=== PATIENT | female | born 1965 | race Caucasian/White ===

== ENCOUNTER 2016-12-09 15:07 | Emergency (ER) | payer OTHER ==
[~2016-12-09] VITALS: Ht 165.1 cm; Wt 135.6 kg
[2016-12-09] MEDS ORDERED: VALS320T2 PO (15:56)
[2016-12-09] MEDS ORDERED: HYDR50TA3 PO (15:56)
[2016-12-09] MEDS ORDERED: AMLO5TAB2 PO (15:56)
[2016-12-09] MEDS ORDERED: CARV-39 PO ×2 (15:56)
[2016-12-09] MEDS ORDERED: CEPH-376 PO (15:56)
[2016-12-09] MEDS ORDERED: SODIUM CHLORIDE FLUSH 10ML SYR IVF ONE (16:00)
[2016-12-09] MEDS ORDERED: SODIUM CHLORIDE 0.9% 1,000ML IVBOLUS ONE (16:00)
[2016-12-09 16:31] LABS: ASPARTATE AMINO TRANSFERASE 20 U/L (15-37); BLOOD UREA NITROGEN 17 mg/dL (7-18)
[2016-12-09 18:09] VITALS: BP 172/85
== END 2016-12-09 18:29 | disposition home or self-care (01) ==
LOC: ED 17:21
DX: L03.116 Cellulitis of left lower limb (principal); I10 Essential (primary) hypertension; Z87.891 Personal history of nicotine dependence
CPT/HCPCS: 36415; 73630; 80053; 83605; 84145; 85025; 87040; 93971; 96360; 96361; 99285; J7030

== ENCOUNTER → 2016-12-09 | Outpatient (CLI) | payer OTHER ==
[~2016-12-09] MED LIST: AMLO5TAB2 PO; CARV-39 PO; CEPH-376 PO; HYDR50TA3 PO; VALS320T2 PO
== END | disposition home or self-care (01) ==
LOC: WOUND 13:36
PROVIDERS: ATTEND Physician Assistant
DX: L03.116 Cellulitis of left lower limb (principal); I87.2 Venous insufficiency (chronic) (peripheral); I10 Essential (primary) hypertension; Z87.891 Personal history of nicotine dependence; Z72.89 Other problems related to lifestyle
CPT/HCPCS: 99214

== ENCOUNTER → 2016-12-28 | Outpatient (CLI) | payer OTHER | END | disposition home or self-care (01) | LOC: CFH 06:37 | PROVIDERS: ATTEND Physician Assistant | DX: I87.2 Venous insufficiency (chronic) (peripheral) (principal); R60.0 Localized edema; S91.302D Unspecified open wound, left foot, subsequent encounter; I10 Essential (primary) hypertension; Z87.891 Personal history of nicotine dependence; X58.XXXD Exposure to other specified factors, subsequent encounter | CPT/HCPCS: 93922; 93925; 93971 ==

== ENCOUNTER 2017-01-02 12:29 | Inpatient (IN) | payer OTHER ==
[~2017-01-02] VITALS: Ht 165.1 cm; Wt 134.5 kg
[~2017-01-02 12:29] MED LIST changes: -SULF1TAB3 PO; -TERB250T3 PO
[2017-01-02] MEDS ORDERED: SULF1TAB3 PO (12:58)
[2017-01-02] MEDS ORDERED: TERB250T3 PO (12:58)
[2017-01-02 13:54] LABS: BLOOD UREA NITROGEN 21 mg/dL (7-18)
[2017-01-02] MEDS ORDERED: PHARMACY MAY ADJ FOR RENAL FX MC PRN (15:30)
[2017-01-02 15:45] VITALS: BP 133/80
[2017-01-02] MEDS ORDERED: HYDROcodone/APAP 5/325 TABLET PO PRN (16:00)
[2017-01-02] MEDS ORDERED: BISACODYL 10 MG SUPP PR PRN (16:00)
[2017-01-02] MEDS ORDERED: ONDANSETRON ODT 4 MG PO PRN (16:00)
[2017-01-02] MEDS ORDERED: DIPHENHYDRAMINE 50 MG/ML, 1ML IVPush PRN (16:00)
[2017-01-02] MEDS ORDERED: DOCUSATE 100 MG CAPSULE PO PRN (16:00)
[2017-01-02] MEDS ORDERED: ONDANSETRON 2MG/ML, 2ML IVPush PRN (16:00)
[2017-01-02] MEDS ORDERED: LABETALOL 5MG/ML, 20ML IVPush PRN (16:00)
[2017-01-02] MEDS ORDERED: POLYETHYLENE GLYCOL 17 GM PACKET PO PRN (16:00)
[2017-01-02] MEDS: HEPARIN 5,000 UNITS/ML, 1ML SQ SCH (17:48)
[2017-01-02] MEDS: CEFTAROLINE 400 MG in SODIUM CHLORIDE 0.9% 100 ML IV SCH (17:48)
[2017-01-02 19:18] VITALS: BP 119/72
[2017-01-02] MEDS: SODIUM CHLORIDE FLUSH 3ML SYRINGE IVF SCH (22:48)
[2017-01-02] MEDS: CARVEDILOL 25 MG TABLET PO SCH (22:48)
[2017-01-03] MEDS: HEPARIN 5,000 UNITS/ML, 1ML SQ SCH ×4 (00:30→23:59)
[2017-01-03 03:10] VITALS: BP 111/69
[2017-01-03 05:49] LABS: BLOOD UREA NITROGEN 18 mg/dL (7-18)
[2017-01-03] MEDS: CEFTAROLINE 400 MG in SODIUM CHLORIDE 0.9% 100 ML IV SCH ×2 (06:31→18:06)
[2017-01-03 07:24] VITALS: BP 119/68
[2017-01-03] MEDS: AMLODIPINE 5 MG TABLET PO SCH ×2 (07:57→09:00)
[2017-01-03] MEDS: HYDROCHLOROTHIAZIDE 25 MG TABLET PO SCH (08:01)
[2017-01-03] MEDS: TERBINAFINE 250MG TABLET PO SCH (08:02)
[2017-01-03] MEDS: SODIUM CHLORIDE FLUSH 3ML SYRINGE IVF SCH ×2 (09:00→20:27)
[2017-01-03] MEDS: CARVEDILOL 25 MG TABLET PO SCH ×3 (09:00→20:29)
[2017-01-03] MEDS: VALSARTAN 320 MG TABLET PO SCH (09:00)
[2017-01-03] MEDS ORDERED: CARVEDILOL 25 MG TABLET PO SCH ×2 (09:00→21:00)
[2017-01-03 10:00] VITALS: BP 109/60
[2017-01-03 13:47] VITALS: BP 141/68
[2017-01-03 20:16] VITALS: BP 112/72
[2017-01-04 01:13] VITALS: BP 111/72
[2017-01-04] MEDS: CEFTAROLINE 400 MG in SODIUM CHLORIDE 0.9% 100 ML IV SCH ×2 (06:02→17:45)
[2017-01-04 07:41] VITALS: BP 121/71
[2017-01-04] MEDS: HEPARIN 5,000 UNITS/ML, 1ML SQ SCH ×2 (08:44→16:34)
[2017-01-04] MEDS: SODIUM CHLORIDE FLUSH 3ML SYRINGE IVF SCH ×2 (08:45→21:00)
[2017-01-04] MEDS: HYDROCHLOROTHIAZIDE 25 MG TABLET PO SCH (08:45)
[2017-01-04] MEDS: CARVEDILOL 25 MG TABLET PO SCH ×2 (08:45→21:45)
[2017-01-04] MEDS: AMLODIPINE 5 MG TABLET PO SCH (08:46)
[2017-01-04] MEDS: VALSARTAN 320 MG TABLET PO SCH (08:46)
[2017-01-04] MEDS: TERBINAFINE 250MG TABLET PO SCH (08:46)
[2017-01-04 12:53] VITALS: BP 153/72
[2017-01-04 19:39] VITALS: BP 138/84
[2017-01-05] MEDS: HEPARIN 5,000 UNITS/ML, 1ML SQ SCH ×4 (00:31→23:43)
[2017-01-05 02:37] VITALS: BP 103/65
[2017-01-05] MEDS: CEFTAROLINE 400 MG in SODIUM CHLORIDE 0.9% 100 ML IV SCH (05:55)
[2017-01-05 07:31] VITALS: BP 149/82
[2017-01-05] MEDS: SODIUM CHLORIDE FLUSH 3ML SYRINGE IVF SCH ×2 (09:00→21:00)
[2017-01-05] MEDS: TERBINAFINE 250MG TABLET PO SCH (09:00)
[2017-01-05] MEDS: AMLODIPINE 5 MG TABLET PO SCH (09:26)
[2017-01-05] MEDS: VALSARTAN 320 MG TABLET PO SCH (09:26)
[2017-01-05] MEDS: CARVEDILOL 25 MG TABLET PO SCH ×2 (09:27→20:32)
[2017-01-05] MEDS: HYDROCHLOROTHIAZIDE 25 MG TABLET PO SCH (09:27)
[2017-01-05 12:52] VITALS: BP 103/69
[2017-01-05] MEDS: CEFTAROLINE 600 MG in SODIUM CHLORIDE 0.9% 100 ML IV SCH ×2 (15:47→23:43)
[2017-01-05 20:23] VITALS: BP 118/71
[2017-01-06 02:59] VITALS: BP 126/82
[2017-01-06] MEDS: CEFTAROLINE 600 MG in SODIUM CHLORIDE 0.9% 100 ML IV SCH ×3 (08:06→23:16)
[2017-01-06 08:49] VITALS: BP 139/89
[2017-01-06] MEDS: TERBINAFINE 250MG TABLET PO SCH (09:00)
[2017-01-06] MEDS: SODIUM CHLORIDE FLUSH 3ML SYRINGE IVF SCH ×2 (09:00→20:20)
[2017-01-06] MEDS: HYDROCHLOROTHIAZIDE 25 MG TABLET PO SCH (09:56)
[2017-01-06] MEDS: CARVEDILOL 25 MG TABLET PO SCH ×2 (09:57→20:19)
[2017-01-06] MEDS: AMLODIPINE 5 MG TABLET PO SCH (09:57)
[2017-01-06] MEDS: VALSARTAN 320 MG TABLET PO SCH (09:57)
[2017-01-06] MEDS: HEPARIN 5,000 UNITS/ML, 1ML SQ SCH ×3 (09:58→23:18)
[2017-01-06 16:46] VITALS: BP 127/78
[2017-01-06 20:28] VITALS: BP 131/71
[2017-01-07 04:31] VITALS: BP 108/72
[2017-01-07] MEDS: CEFTAROLINE 600 MG in SODIUM CHLORIDE 0.9% 100 ML IV SCH ×2 (06:19→16:23)
[2017-01-07 07:00] VITALS: BP 131/79
[2017-01-07] MEDS: SODIUM CHLORIDE FLUSH 3ML SYRINGE IVF SCH ×2 (09:00→21:00)
[2017-01-07] MEDS: CARVEDILOL 25 MG TABLET PO SCH ×2 (09:46→21:04)
[2017-01-07] MEDS: AMLODIPINE 5 MG TABLET PO SCH (09:46)
[2017-01-07] MEDS: VALSARTAN 320 MG TABLET PO SCH (09:47)
[2017-01-07] MEDS: HYDROCHLOROTHIAZIDE 25 MG TABLET PO SCH (09:47)
[2017-01-07] MEDS: HEPARIN 5,000 UNITS/ML, 1ML SQ SCH ×3 (09:48→23:59)
[2017-01-07] MEDS: TERBINAFINE 250MG TABLET PO SCH (09:50)
[2017-01-07 12:30] VITALS: BP 121/76
[2017-01-07] MEDS: DIPHENHYDRAMINE 50 MG CAPSULE PO PRN (14:42)
[2017-01-07 20:00] VITALS: BP 151/85
[2017-01-07] MEDS: MEROPENEM 500 MG in SODIUM CHLORIDE 0.9% 100 ML IV SCH (20:30)
[2017-01-07] MEDS: LINEZOLID PMX 600MG/300ML 300 ML IV SCH (21:04)
[2017-01-08] MEDS: MEROPENEM 500 MG in SODIUM CHLORIDE 0.9% 100 ML IV SCH ×4 (01:41→22:45)
[2017-01-08 01:50] VITALS: BP 103/68
[2017-01-08 05:43] LABS: BLOOD UREA NITROGEN 10 mg/dL (7-18)
[2017-01-08] MEDS ORDERED: POTASSIUM CHLORIDE 20 MEQ TAB.ER.PRT PO ONE (06:42)
[2017-01-08] MEDS: HYDROCHLOROTHIAZIDE 25 MG TABLET PO SCH (08:44)
[2017-01-08] MEDS: AMLODIPINE 5 MG TABLET PO SCH (08:44)
[2017-01-08] MEDS: CARVEDILOL 25 MG TABLET PO SCH ×2 (08:44→20:26)
[2017-01-08] MEDS: VALSARTAN 320 MG TABLET PO SCH (08:44)
[2017-01-08] MEDS: HEPARIN 5,000 UNITS/ML, 1ML SQ SCH ×2 (08:45→16:21)
[2017-01-08] MEDS: TERBINAFINE 250MG TABLET PO SCH (08:45)
[2017-01-08 08:48] VITALS: BP 146/83
[2017-01-08] MEDS: DIPHENHYDRAMINE 50 MG CAPSULE PO PRN (08:50)
[2017-01-08] MEDS: SODIUM CHLORIDE FLUSH 3ML SYRINGE IVF SCH ×2 (09:00→20:29)
[2017-01-08] MEDS: LINEZOLID PMX 600MG/300ML 300 ML IV SCH ×2 (10:15→20:26)
[2017-01-08 15:44] VITALS: BP 130/75
[2017-01-08 20:00] VITALS: BP 144/86
[2017-01-09] MEDS: HEPARIN 5,000 UNITS/ML, 1ML SQ SCH ×3 (00:01→16:47)
[2017-01-09 00:57] VITALS: BP 109/62
[2017-01-09] MEDS: MEROPENEM 500 MG in SODIUM CHLORIDE 0.9% 100 ML IV SCH ×3 (04:38→16:47)
[2017-01-09 05:21] LABS: ASPARTATE AMINO TRANSFERASE 35 U/L (15-37); BLOOD UREA NITROGEN 10 mg/dL (7-18)
[2017-01-09 07:56] VITALS: BP 129/78
[2017-01-09] MEDS: CARVEDILOL 25 MG TABLET PO SCH ×2 (08:35→21:28)
[2017-01-09] MEDS: VALSARTAN 320 MG TABLET PO SCH (08:35)
[2017-01-09] MEDS: LINEZOLID PMX 600MG/300ML 300 ML IV SCH ×2 (08:35→21:28)
[2017-01-09] MEDS: HYDROCHLOROTHIAZIDE 25 MG TABLET PO SCH (08:36)
[2017-01-09] MEDS: AMLODIPINE 5 MG TABLET PO SCH (08:36)
[2017-01-09] MEDS: TERBINAFINE 250MG TABLET PO SCH (08:37)
[2017-01-09] MEDS: SODIUM CHLORIDE FLUSH 3ML SYRINGE IVF SCH ×2 (09:00→21:00)
[2017-01-09 13:30] VITALS: BP 132/73
[2017-01-09 18:58] VITALS: BP 142/82
[2017-01-10] MEDS: MEROPENEM 500 MG in SODIUM CHLORIDE 0.9% 100 ML IV SCH ×5 (00:01→23:53)
[2017-01-10 01:32] VITALS: BP 105/68
[2017-01-10 05:21] LABS: BLOOD UREA NITROGEN 9 mg/dL (7-18)
[2017-01-10 08:28] VITALS: BP 155/88
[2017-01-10] MEDS: LINEZOLID PMX 600MG/300ML 300 ML IV SCH ×2 (08:46→21:03)
[2017-01-10] MEDS: HEPARIN 5,000 UNITS/ML, 1ML SQ SCH ×4 (08:46→23:58)
[2017-01-10] MEDS: SODIUM CHLORIDE FLUSH 3ML SYRINGE IVF SCH ×2 (08:46→21:00)
[2017-01-10] MEDS: CARVEDILOL 25 MG TABLET PO SCH ×2 (08:47→21:03)
[2017-01-10] MEDS: AMLODIPINE 5 MG TABLET PO SCH (08:47)
[2017-01-10] MEDS: VALSARTAN 320 MG TABLET PO SCH (08:47)
[2017-01-10] MEDS: HYDROCHLOROTHIAZIDE 25 MG TABLET PO SCH (08:48)
[2017-01-10] MEDS: TERBINAFINE 250MG TABLET PO SCH (08:49)
[2017-01-10 14:28] VITALS: BP 103/67
[2017-01-10 18:54] VITALS: BP 143/84
[2017-01-10] MEDS: DIPHENHYDRAMINE 50 MG CAPSULE PO PRN (21:03)
[2017-01-11 02:04] VITALS: BP 114/73
[2017-01-11] MEDS: MEROPENEM 500 MG in SODIUM CHLORIDE 0.9% 100 ML IV SCH (05:46)
[2017-01-11 05:48] LABS: BLOOD UREA NITROGEN 10 mg/dL (7-18)
[2017-01-11 07:55] VITALS: BP 144/72
[2017-01-11] MEDS: HEPARIN 5,000 UNITS/ML, 1ML SQ SCH ×3 (07:59→23:59)
[2017-01-11] MEDS: CARVEDILOL 25 MG TABLET PO SCH ×2 (07:59→20:47)
[2017-01-11] MEDS: SODIUM CHLORIDE FLUSH 3ML SYRINGE IVF SCH ×2 (08:00→20:48)
[2017-01-11] MEDS: VALSARTAN 320 MG TABLET PO SCH (08:00)
[2017-01-11] MEDS: AMLODIPINE 5 MG TABLET PO SCH (08:01)
[2017-01-11] MEDS: HYDROCHLOROTHIAZIDE 25 MG TABLET PO SCH (08:01)
[2017-01-11] MEDS: TERBINAFINE 250MG TABLET PO SCH (08:02)
[2017-01-11] MEDS: LINEZOLID PMX 600MG/300ML 300 ML IV SCH (09:56)
[2017-01-11] MEDS ORDERED: TRIAMCINOLONE OINT 0.1%, 15GM TP SCH (11:30)
[2017-01-11] MEDS: TRIAMCINOLONE CRM 0.1%, 15GM TP SCH ×2 (12:30→20:48)
[2017-01-11] MEDS: DOXYCYCLINE 100MG TABLET PO SCH ×2 (12:30→20:47)
[2017-01-11 14:00] VITALS: BP 126/74
[2017-01-11 19:24] VITALS: BP 143/84
[2017-01-11] MEDS: DIPHENHYDRAMINE 50 MG CAPSULE PO PRN (20:48)
[2017-01-12 02:35] VITALS: BP 107/72
[2017-01-12 05:44] LABS: BLOOD UREA NITROGEN 10 mg/dL (7-18)
[2017-01-12 07:22] VITALS: BP 122/77
[2017-01-12] MEDS: SODIUM CHLORIDE FLUSH 3ML SYRINGE IVF SCH ×2 (09:00→20:41)
[2017-01-12] MEDS: TERBINAFINE 250MG TABLET PO SCH (09:00)
[2017-01-12] MEDS: VALSARTAN 320 MG TABLET PO SCH (09:23)
[2017-01-12] MEDS: DOXYCYCLINE 100MG TABLET PO SCH ×2 (09:23→20:41)
[2017-01-12] MEDS: AMLODIPINE 5 MG TABLET PO SCH (09:23)
[2017-01-12] MEDS: HYDROCHLOROTHIAZIDE 25 MG TABLET PO SCH (09:23)
[2017-01-12] MEDS: CARVEDILOL 25 MG TABLET PO SCH ×2 (09:24→20:41)
[2017-01-12] MEDS: HEPARIN 5,000 UNITS/ML, 1ML SQ SCH (09:24)
[2017-01-12] MEDS: TRIAMCINOLONE CRM 0.1%, 15GM TP SCH ×2 (09:24→20:41)
[2017-01-12] MEDS ORDERED: ENOXAPARIN 40 MG/0.4 ML SQ SCH (15:00)
[2017-01-12 15:17] VITALS: BP 128/77
[2017-01-12 19:41] VITALS: BP 135/84
[2017-01-13 02:06] VITALS: BP 115/75
[2017-01-13 07:21] VITALS: BP 141/86
[2017-01-13] MEDS: TERBINAFINE 250MG TABLET PO SCH (09:00)
[2017-01-13] MEDS: SODIUM CHLORIDE FLUSH 3ML SYRINGE IVF SCH (09:00)
[2017-01-13] MEDS: TRIAMCINOLONE CRM 0.1%, 15GM TP SCH (09:00)
[2017-01-13] MEDS: AMLODIPINE 5 MG TABLET PO SCH (09:41)
[2017-01-13] MEDS: DOXYCYCLINE 100MG TABLET PO SCH (09:41)
[2017-01-13] MEDS: VALSARTAN 320 MG TABLET PO SCH (09:42)
[2017-01-13] MEDS: CARVEDILOL 25 MG TABLET PO SCH (09:42)
[2017-01-13] MEDS: HYDROCHLOROTHIAZIDE 25 MG TABLET PO SCH (09:42)
[2017-01-13 12:50] VITALS: BP 107/70
[2017-01-13] MEDS ORDERED: DOXY100T PO (15:47)
[2017-01-13] MEDS ORDERED: CARV25TA12 PO (15:47)
[2017-01-13] MEDS ORDERED: TRIA15CR3 TP (15:47)
[2017-01-13] MEDS ORDERED: LACT1CAP24 PO (15:49)
== END 2017-01-13 17:20 | disposition home or self-care (01) | DRG 602 ==
LOC: ED 13:31 → EDIP 14:33 → 3NE 15:36
PROVIDERS: ADMIT Internal Medicine; ATTEND Internal Medicine
DX: L03.116 Cellulitis of left lower limb (principal); E43 Unspecified severe protein-calorie malnutrition; Z68.42 Body mass index [BMI] 45.0-49.9, adult; L03.115 Cellulitis of right lower limb; I87.2 Venous insufficiency (chronic) (peripheral); N18.2 Chronic kidney disease, stage 2 (mild); I12.9 Hypertensive chronic kidney disease with stage 1 through stage 4 chronic kidney disease, or unspecified chronic kidney disease; I87.8 Other specified disorders of veins; K58.0 Irritable bowel syndrome with diarrhea; G47.33 Obstructive sleep apnea (adult) (pediatric); E87.6 Hypokalemia; E66.01 Morbid (severe) obesity due to excess calories; L27.0 Generalized skin eruption due to drugs and medicaments taken internally; F43.9 Reaction to severe stress, unspecified; T38.0X5A Adverse effect of glucocorticoids and synthetic analogues, initial encounter; T36.0X5A Adverse effect of penicillins, initial encounter; Z87.891 Personal history of nicotine dependence; Z90.49 Acquired absence of other specified parts of digestive tract; Z82.49 Family history of ischemic heart disease and other diseases of the circulatory system; Z88.0 Allergy status to penicillin; Z79.899 Other long term (current) drug therapy; Z82.61 Family history of arthritis; Y92.89 Other specified places as the place of occurrence of the external cause
CPT/HCPCS: 36415; 80048; 80053; 81001; 82040; 83605; 85025; 85651; 86140; 87040; 87086; 99285; J0712; J1644; J2020; J2185; J1200

== ENCOUNTER → 2017-01-02 | Outpatient (CLI) | payer OTHER ==
[~2017-01-02] MED LIST changes: +SULF1TAB3 PO; +TERB250T3 PO
== END | disposition home or self-care (01) ==
LOC: WOUND 11:19
PROVIDERS: ATTEND Physician Assistant
DX: L03.116 Cellulitis of left lower limb (principal); Z68.42 Body mass index [BMI] 45.0-49.9, adult; I12.9 Hypertensive chronic kidney disease with stage 1 through stage 4 chronic kidney disease, or unspecified chronic kidney disease; N18.2 Chronic kidney disease, stage 2 (mild); Z87.891 Personal history of nicotine dependence; Z72.89 Other problems related to lifestyle
CPT/HCPCS: 99214

== ENCOUNTER → 2017-01-16 | Outpatient (CLI) | payer OTHER ==
[~2017-01-16] MED LIST changes: +CARV25TA12 PO; +DOXY100T PO; +LACT1CAP24 PO; +SULF1TAB3 PO; +TERB250T3 PO; +TRIA15CR3 TP
== END | disposition home or self-care (01) ==
LOC: WOUND 09:00
PROVIDERS: ATTEND Physician Assistant
DX: L03.116 Cellulitis of left lower limb (principal); L27.8 Dermatitis due to other substances taken internally; I87.2 Venous insufficiency (chronic) (peripheral); I10 Essential (primary) hypertension; Z87.891 Personal history of nicotine dependence; Z72.89 Other problems related to lifestyle
CPT/HCPCS: 99214